=== PATIENT | female | born 1985 | race African-American/Black ===

== ENCOUNTER 2020-08-30 13:39 | Emergency (ER) | payer MEDICAID ==
[~2020-08-30] VITALS: Ht 162.6 cm; Wt 64.0 kg
[2020-08-30] MEDS ORDERED: LORAZEPAM 2MG/ML CPJ IV STA (14:10)
[2020-08-30] MEDS ORDERED: LEVETIRACETAM 500MG PREMIX 100 ML IV ONE (14:15)
[2020-08-30] MEDS ORDERED: SODIUM CHLORIDE 0.9% 1,000 ML IV ONE (14:15)
[2020-08-30 14:31] LABS: BASOPHILS % 0.5 % (0.0-2.0); EOSINOPHILS % 0.6 % (0.0-5.0); HEMATOCRIT. 36.5 % (36.0-48.0); HEMOGLOBIN. 12.7 g/dL (12.0-16.0); LYMPHOCYTES % 15.7 % (20.0-50.0); MEAN CORPUSCULAR VOLUME 85.9 fL (81.0-99.0); MEAN PLATELET VOLUME 8.5 fl (7.4-10.4); MONOCYTES % 4.9 % (2.0-8.0); NEUTROPHILS % 78.3 % (40.0-76.0); PLATELET 343 x1000/uL (130-400); RED BLOOD CELL COUNT 4.25 mill/uL (4.2-5.4)
[2020-08-30 14:38] LABS: CHLORIDE 109 mEq/L (98-107)
[2020-08-30 14:42] LABS: ETHANOL BLOOD < 10 mg/dL
[2020-08-30 14:45] LABS: HCG SCREEN NEGATIVE
[2020-08-30 14:52] LABS: PHENOBARBITAL < 2.1 ug/mL (15.0-40.0); VALPROIC ACID < 3.0 ug/mL (50-100)
[2020-08-30 14:55] LABS: CARBAMAZEPINE < 0.5 ug/mL (4-12)
[2020-08-30] MEDS ORDERED: LORAZEPAM 2MG/ML CPJ IV NR (15:15)
[2020-08-30 15:57] LABS: CLARITY URINE TURBID (CLEAR); COLOR URINE DARK YELLOW (YELLOW); KETONES URINE 3+ (NEGATIVE); LEUKOCYTE ESTERASE URINE 1+ (NEGATIVE); NITRITE URINE NEGATIVE (NEGATIVE); OCCULT BLOOD URINE TRACE (NEGATIVE); PH URINE 5.5 (4.5-8.0); PROTEIN URINE 1+ (NEGATIVE); SPECIFIC GRAVITY URINE 1.023 (1.005-1.030)
[2020-08-30] MEDS ORDERED: POTASSIUM CHLORIDE 20MEQ TABLET SR PO ONE (16:00)
[2020-08-30 16:23] LABS: *BARBITURATES SCREEN URINE NEGATIVE (NEGATIVE); *BENZODIAZEPINES SCREEN URINE NEGATIVE (NEGATIVE); *COCAINE SCREEN URINE NEGATIVE (NEGATIVE); OPIATES URINE SCREEN NEGATIVE (NEGATIVE)
[2020-08-30 16:24] LABS: METHADONE URINE SCREEN NEGATIVE (NEGATIVE); PHENCYCLIDINE URINE SCREEN NEGATIVE (NEGATIVE)
[2020-08-30 16:25] LABS: *AMPHETAMINES SCREEN URINE PRESUMTIVE POSITIVE (NEGATIVE); CANNABINOID URINE SCREEN PRESUMTIVE POSITIVE (NEGATIVE)
[2020-08-30] MEDS ORDERED: CEFTRIAXONE 1 G PREMIX 50 ML IV ONE (16:45)
[2020-08-30] MEDS ORDERED: KEPP500 MT (18:33)
[2020-08-30] MEDS ORDERED: NITR-87 MT (18:36)
[2020-08-31 01:45] VITALS: BP 122/62
== END 2020-08-31 01:50 | disposition still patient (30) ==
LOC: ER 13:39 → EDSEX 13:39 → ER 08-31 01:50
DX: R56.9 Unspecified convulsions (principal); F15.10 Other stimulant abuse, uncomplicated; N39.0 Urinary tract infection, site not specified
CPT/HCPCS: 36415; 70450; 71045; 80053; 80156; 80165; 80184; 80185; 80305; 80307; 80320; 80329; 81003; 82962; 84703; 85025; 93005; 96365; 96375; 99285; J0696; J1953; J2060; J7030; J7040; Z7610; G0480